=== PATIENT | male | born 1995 | race Hispanic/Latino ===

== ENCOUNTER 2018-01-08 20:55 | Emergency (ER) | payer BC ==
[~2018-01-08] VITALS: Ht 185.4 cm; Wt 83.9 kg
[2018-01-08] MEDS ORDERED: XYZAL5 MG PO (21:30)
[2018-01-08] MEDS ORDERED: NASONEX17 GM (21:30)
[2018-01-08] MEDS ORDERED: IBUPROFEN400 MG PO (21:33)
[2018-01-08] MEDS ORDERED: LIDOCAINE1 EA PO (21:33)
== END 2018-01-08 21:48 | disposition home or self-care (01) ==
LOC: FSED 20:55
DX: J02.9 Acute pharyngitis, unspecified (principal)
CPT/HCPCS: 99283